=== PATIENT | female | born 1990 | race Caucasian/White ===

== ENCOUNTER 2025-02-14 09:28 | Emergency (ER) | payer OTHER, SELFPAY ==
[2025-02-14 09:31] VITALS: BP 143/70; PULSE 100; TEMP 36.5; O2SAT 99; BMI 32.3
--- NOTE | 2025-02-14 09:51 | ED.GENADUL1 ---
HPI HPI - General Adult General Chief complaint: Abdominal Pain Stated complaint: BACK PAIN Time Seen by Provider: 02/14/25 09:30 Source: patient Mode of arrival: walk-in Limitations: no limitations History of Present Illness HPI narrative: 34-year-old female presents for lower back pain. She states she has been having this problem on and off for years. There is no injury and it does not radiate into her legs. She saw a chiropractor about it and no x-rays were performed. Subsequently she had been seen by a local doctor who ordered some outpatient x-rays at another facility. No dysuria or hematuria. Related Data Previous Rx's ?Medication ?Instructions ?Recorded etodolac 400 mg tablet 400 mg PO Q8H PRN pain #20 tabs 02/14/25 methocarbamol 750 mg tablet 750 mg PO Q6H PRN pain #20 tabs 02/14/25 Allergies Allergy/AdvReac Type Severity Reaction Status Date / Time No Known Drug Allergies Allergy Verified 02/14/25 09:31 Opioid HPI Opioid Management Most Recent Opioid Data: Last Pain Scale 8 02/14/25 10:11 02/14/25 Last MAR Pain Assessment 02/14/25 10:11 Review of Systems ROS Narrative A ten point review of systems is negative except as noted above. PFSH PFSH Social History Little interest or pleasure in doing things: not at all Feeling down, depressed, or hopeless: not at all Exam Narrative Exam Narrative: Nurses note and vital signs reviewed and patient is not hypoxic. General: The patient appears well and in no apparent distress. Skin: Warm, dry, no pallor noted. There is no rash noted. Head: Normocephalic, atraumatic Eye: Normal conjunctiva, no drainage Ears, Nose, Mouth, and Throat: oral mucosa is moist. Nares patent. Cardiovascular: Regular Rate and Rhythm Respiratory: Patient is in no distress, no accessory muscle use, lungs are clear to auscultation, no wheezing, rales or rhonchi Back: non-tender, no bruise or rash. No palpable tenderness. GI: Soft and nontender Musculoskeletal: The patient has no evidence of calf tenderness, no pitting edema, symmetrical pulses noted bilaterally Neurological: A&O, normal speech Psychiatric: Cooperative Constitutional Vital Signs, click to edit/add: Last Vital Signs Temp 97.7 F 02/14/25 09:31 Pulse 100 H 02/14/25 09:31 Resp 20 02/14/25 09:31 BP 143/70 H 02/14/25 09:31 Pulse Ox 99 02/14/25 09:31 O2 Del Method Room Air 02/14/25 09:31 Course Vital Signs Vital signs: Vital Signs Temperature 97.7 F 02/14/25 09:31 Pulse Rate 100 H 02/14/25 09:31 Respiratory Rate 20 02/14/25 09:31 Blood Pressure 143/70 H 02/14/25 09:31 Pulse Oximetry 99 02/14/25 09:31 Oxygen Delivery Method Room Air 02/14/25 09:31 Temperature 97.7 F 02/14/25 09:31 Pulse Rate 100 H 02/14/25 09:31 Respiratory Rate 20 02/14/25 09:31 Blood Pressure 143/70 H 02/14/25 09:31 Pulse Oximetry 99 02/14/25 09:31 Oxygen Delivery Method Room Air 02/14/25 09:31 Medical Decision Making MDM Narrative Medical decision making narrative: Urinalysis is negative. X-rays performed at other facility showed minor degenerative disc changes and no acute compression or other fracture. No subluxation. She was given IM Toradol and Norflex and prescribed etodolac and methocarbamol. She has follow-up with her family doctor. Treatment diagnosis and follow-up were discussed with the patient. I do not suspect a herniated disc and this is more likely muscular pain. Treatment diagnosis and follow-up were discussed with the patient. Differential Diagnosis Differential Diagnosis: Muscle strain, chronic pain, compression fracture, UTI Lab Data Lab results reviewed: Yes I reviewed the patient's lab results Labs: Lab Results 02/14/25 Range/Units 10:40 Urine Color Lt. yellow (YELLOW) Urine Clarity Clear (CLEAR) Urine pH 7.0 (5.0-9.0) Ur Specific [place] 1.015 (1.005-1.025) Urine Protein Negative (NEG/TRACE) mg/dL Urine Glucose (UA) Negative (NEGATIVE) mg/dL Urine Ketones Negative (NEGATIVE) mg/dL Urine Occult Blood Negative (NEGATIVE) Urine Nitrite Negative (NEGATIVE) Urine Bilirubin Negative (NEGATIVE) Urine Urobilinogen 0.2 (0.2-1.0) EU/dL Ur Leukocyte Esterase Negative (NEGATIVE) Urine RBC 2-5 A (0-2) #/HPF Urine WBC 0-2 A (NONE SEEN) #/HPF Ur Squamous Epith Cells Moderate A (NONE/RARE) #/LPF Urine Crystals None seen (None Seen) #/HPF Urine Bacteria Moderate A (NONE SEEN) #/HPF Urine Casts None seen (NONE SEEN) #/LPF Urine Mucus Trace A (NONE SEEN) Ur Culture Indicated? Yes-[facility] [place] HCG, Qual Negative (NEGATIVE) Discharge Plan Discharge Chief Complaint: Abdominal Pain Clinical Impression: Low back pain Patient Disposition: Home, Self-Care Time of Disposition Decision: 11:09 Condition: Good Mode of Transportation: Private Vehicle Prescriptions / Home Meds: New etodolac 400 mg tablet 400 mg PO Q8H PRN (Reason: pain) Qty: 20 0RF methocarbamol 750 mg tablet 750 mg PO Q6H PRN (Reason: pain) Qty: 20 0RF Print Language: Slovenian Instructions: Acute Low Back Pain (ED) Referrals: ROB BE [Primary Care Provider] - 1 week
[2025-02-14] MEDS: ORPHENADRINE 60 MG/2 ML VIAL IM (10:11)
[2025-02-14] MEDS: KETOROLAC TROMETHAMINE 60 MG/2 ML VIAL IM (10:11)
[2025-02-14 10:53] LABS: Bilirubin Urine NEGATIVE (NEGATIVE); Blood Urine NEGATIVE (NEGATIVE); Clarity Urine CLEAR (CLEAR); Color Urine LT. YELLOW (YELLOW); Glucose Urine UA NEGATIVE (NEGATIVE); Ketones Urine NEGATIVE (NEGATIVE); Leukocyte Esterase Urine NEGATIVE (NEGATIVE); Nitrite Urine NEGATIVE (NEGATIVE); Protein Urine NEGATIVE (NEG/TRACE); Specific Gravity Urine 1.015 (1.005-1.025); Urobilinogen Urine 0.2 EU/dL (0.2-1.0)
[2025-02-14 10:56] LABS: HCG Qualitative Urine* NEGATIVE (NEGATIVE); Internal Control Within Normal Limits
[2025-02-14 11:05] LABS: Bacteria Urine MODERATE #/HPF (NONE SEEN); Crystals Seen? None Seen #/HPF (None Seen); Mucus Urine TRACE (NONE SEEN); Squamous Epithelial Cell Urine MODERATE #/LPF (NONE/RARE); WBC Urine 0-2 #/HPF (NONE SEEN)
[2025-02-14 11:06] LABS: Cast Seen? NONE SEEN #/LPF (NONE SEEN); Urine Culture Indicated YES-FRMC
[2025-02-14 11:35] VITALS: BP 108/87; PULSE 87; O2SAT 96
== END 2025-02-14 11:34 | disposition home or self-care (01) ==
PROVIDERS: Emergency Provider Emergency Medicine; PCP Family Medicine
DX: M54.50 Low back pain, unspecified (principal); R82.998 Other abnormal findings in urine
CPT/HCPCS: 81001; 84703; 87086; 96372; 99284; J1885; J2360